=== PATIENT | male | born 1980 | race Caucasian/White ===

== ENCOUNTER 2020-08-03 13:26 | Emergency (ER) | payer BC, MEDICAID ==
[2020-08-03] MEDS ORDERED: Ketorolac 60 MG/2 ML SDV IM ONE (13:53)
[2020-08-03] MEDS ORDERED: Cyclobenzaprine 10 MG Tab PO ONE (13:53)
--- NOTE | 2020-08-03 14:04 | EDM.PDOC ---
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 holding onto the conveyer belt, his feet slipped and he sunk to his knees in beets, twisted back, did not fall down or fall off the beet pile began work 3a, injury at 6a, worked until end of his shift than came here, took APAP which did not help no regular meds h/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, herniated disc and had surgery, said he has had no problems since then pain is across his lower back, mainly on R, has some pain into his R thigh MPMP is neg Lower Back Pain Score (Numeric/FACES): 9 - Related Data Allergies Allergy/AdvReac Type Severity Reaction Status Date / Time No Known Allergies Allergy Verified 08/03/20 13:40 Home Meds: Home Meds Acetaminophen [Tylenol Extra Strength] 500 mg PO ASDIRECTED PRN 08/03/20 [History] Cyclobenzaprine HCl 10 mg PO TID PRN #21 tablet 08/03/20 [Rx] traMADol HCl [Tramadol HCl] 100 mg PO Q6H PRN #16 tablet 08/03/20 [Rx] Social & Family History - Tobacco Use Smoking Status *Q: Current Every Day Smoker Years of Tobacco use: 10 Packs/Tins Daily: 1 - Caffeine Use Caffeine Use: Reports: Coffee - Recreational Drug Use Recreational Drug Use: No ED ROS GENERAL - Review of Systems Review Of Systems: See Below Constitutional: Reports: No Symptoms HEENT: Reports: No Symptoms Respiratory: Reports: No Symptoms Cardiovascular: Reports: No Symptoms Endocrine: Reports: No Symptoms GI/Abdominal: Reports: No Symptoms : Reports: No Symptoms Musculoskeletal: Reports: Back Pain Skin: Reports: No Symptoms Neurological: Reports: No Symptoms Psychiatric: Reports: No Symptoms Hematologic/Lymphatic: Reports: No Symptoms Immunologic: Reports: No Symptoms ED EXAM,LOWER BACK PAIN/INJURY - Physical Exam Exam: See Below Exam Limited By: No Limitations General Appearance: Alert, WD/WN, No Apparent Distress Respiratory/Chest: No Respiratory Distress Cardiovascular: Regular Rate, Rhythm GI/Abdominal: Soft, Non-Tender Back Exam: Other (sitting on chair stiffly, leaning forward, rocking slightly, walks fairly well with slight antalgic gait, no localized pain in mid or upper back, no pain to direct palpation or percussion of length of spine, 1+ spasm lower paravertebral muslces b/l, R>L, 1+ tender at R iliac crest, SIJ NT b/l) Extremities: Normal Inspection, Non-Tender Neurological: Alert, Normal Mood/Affect, CN II-XII Intact, No Motor/Sensory Deficits, Oriented x 3 Psychiatric: Normal Affect, Normal Mood Skin Exam: Warm, Dry, Intact, Normal Color, No Rash Lymphatic: No Adenopathy Course - Vital Signs Last Recorded V/S: Last Vital Signs Temp 36.9 C 08/03/20 13:27 Pulse 121 H 08/03/20 13:27 Resp 18 08/03/20 13:27 BP 144/103 H 08/03/20 13:27 Pulse Ox 96 08/03/20 13:27 - Orders/Labs/Meds Orders: Active Orders 24 hr Category Date Time Status Lumbar Spine 2 or 3V [CR] Stat Exams 08/03/20 13:53 Taken Meds: Medications Discontinued Medications Generic Name Dose Route Start Last Admin Trade Name Vincent PRN Reason Stop Dose Admin Cyclobenzaprine HCl 10 mg 08/03/20 13:53 08/03/20 14:04 Flexeril PO 08/03/20 13:54 10 mg ONETIME ONE Administration Ketorolac Tromethamine 60 mg 08/03/20 13:53 08/03/20 14:04 Toradol IM 08/03/20 13:54 60 mg ONETIME ONE Administration - Re-Assessments/Exams Free Text/Narrative Re-Assessment/Exam: 08/03/20 14:50 pt reports disc surgery on L5-S1, does have spurring at L1-2 and L5-S1 no disc narrowing no fx on prelim ED read of XR pt shown images he plans to return to [place] where he lives (staying locally with aunt x last 2w) does not have a PCP but agrees to find one pt also informed that he can go to the orthopedic walk-in clinic at [place] in 4d (Mon) if desired doubt disc injury (altho pt aware it cannot be excluded) he ran a [employer] for 8 hours after twisting his back at 8a, which he thinks made the pain worse Departure - Departure Time of Disposition: 14:38 Disposition: Home, Self-Care 01 Condition: Good Clinical Impression: Low back strain, Spasm of muscle of lower back - Discharge Information *PRESCRIPTION DRUG MONITORING PROGRAM REVIEWED*: Yes *COPY OF PRESCRIPTION DRUG MONITORING REPORT IN PATIENT JOHANNA: Not Applicable Prescriptions: Cyclobenzaprine HCl 10 mg PO TID PRN #21 tablet PRN Reason: Spasms Instructions: Lumbosacral Strain, Muscle Strain, Back Injury Prevention, How to Use Cold Therapy Referrals: PCP,None [Primary Care Provider] - Forms: ED Department Discharge, ED Return to Work/School Form Additional Instructions: For pain and inflammation, take ibuprofen 200 mg 3 tabs 4 times a day for one week, longer if needed. For pain and inflammation, take acetaminophen 500 mg 2 tabs 4 times a day for one week, longer if need. For pain, take tramadol 50 mg 2 tabs 4 times a day for 2 days. No alcohol. Do not drive or use power tools if you are feeling sedated. For spasm, take cyclobenzaprine 10 mg 1 tab 3 times a day for 4 days. No alcohol. Do not drive or use power tools if you are feeling sedated. Use ice for 10 minutes every hour as needed for today and tomorrow, longer if needed. Sleep on a firm mattress. Avoid lifting and bending and twisting for the next 4 days. No work for 4 days. See your doctor in 4 days for further evaluation and recommendations and authorization to return to work. Sepsis Event Note (ED) - Evaluation Sepsis Screening Result: No Definite Risk - Focused Exam Vital Signs: Vital Signs Temp Pulse Resp BP Pulse Ox 08/03/20 13:27 36.9 C 121 H 18 144/103 H 96 - My Orders Last 24 Hours: My Active Orders 08/03/20 13:53 Lumbar Spine 2 or 3V [CR] Stat - Assessment/Plan Last 24 Hours: My Active Orders 08/03/20 13:53 Lumbar Spine 2 or 3V [CR] Stat
== END 2020-08-03 14:58 | disposition home or self-care (01) ==
LOC: FB.ED 13:26
DX: S39.012A Strain of muscle, fascia and tendon of lower back, initial encounter (principal); F17.210 Nicotine dependence, cigarettes, uncomplicated; W12.XXXA Fall on and from scaffolding, initial encounter
CPT/HCPCS: 72100; 96372; 99283; A9270; J1885